=== PATIENT | female | born 1960 | race Caucasian/White ===

== ENCOUNTER 2020-07-28 17:34 | Emergency (ER) | payer BC ==
[~2020-07-28] VITALS: Ht 162.6 cm; Wt 77.0 kg
--- NOTE | 2020-07-28 19:15 | RAD ---
XR LT TIBIA + FIBULA, XR KNEE _3 VIEWS_LT Clinical Indication: Reason: INJURY / Spl. Instructions: / History: Comparison: None. Findings: Probable enchondroma of the distal femur is noted. There are tricompartmental marginal osteophytes. T here is mild tricompartmental joint space narrowing. There is patellar enthesophyte. No joint effusio n is identified. No acute fracture is seen. No acute fracture of the tibia or fibula is identified. There is subcutaneous edema of the calf. Ther e is no obvious abnormality of the ankle, incompletely imaged. IMPRESSION: No acute fracture. Electronically signed by: Anshul Bernstein MD (07/28/2020 7:12 PM) [facility]
[2020-07-28] MEDS ORDERED: IBUPROFEN 600 MG TABLET. PO ONE (19:30)
--- NOTE | 2020-07-28 19:30 | PHYS DOC ---
Past History Past Medical History: Diabetes, GERD, High Cholesterol, Hypertension, Other Additional Past Medical Histor: PERIPHERAL VASCULAR DISEASEM, AAA Additional Past Surgical Histo: AAA REPAIR, HERNIA REPAIR Alcohol Use: None Adult General Chief Complaint Chief Complaint: MECHANICAL FALL HPI HPI Patient is a 60-year-old female who presents with left knee pain. States she was in her kitchen, standing on a chair this morning, when the chair went out fr om under her and she hit her left knee on the ground. States she had immediate pain, 6 out of 10, dull and achy in nature and some swelling over the course of the day. States she is able to walk but it does cause some discomfort. Denies any other injuries. Review of Systems Review of Systems Review of systems otherwise unremarkable except noted in HPI Allergies Allergies Allergies Coded Allergies Type Severity Reaction Last Updated Verified Iodinated Contrast Media Allergy Unknown 07/28/20 Yes Penicillins Allergy Unknown 07/28/20 Yes acetaminophen Allergy Unknown 07/28/20 Yes hydrocodone Allergy Unknown 07/28/20 Yes morphine Allergy Unknown 07/28/20 Yes Physical Exam Physical Exam Constitutional: Well developed, well nourished, no acute distress, non-toxic appearance. [] Cardiovascular:Heart rate regular rhythm, no murmur [] Skin: Warm, dry, no erythema, no rash. [] Back: No tenderness, Extremities: Left knee with generalized tenderness around the joint and mild generalized swelling with faint contusion. Neurovascular exam intact. Flexion decreased secondary to pain. Extension normal. Neurologic: Alert and oriented X 3, normal motor function, normal sensory function, no focal deficits noted. [] Psychologic: Affect normal, judgement normal, mood normal. [] Current Patient Data Vital Signs Vital Signs Date Time Temp Pulse Resp B/P (MAP) Pulse Ox O2 Delivery O2 Flow Rate FiO2 07/28/20 17:44 98.4 79 18 174/71 (105) 95 Room Air EKG EKG [] Radiology/Procedures Radiology/Procedures [] Heart Score Risk Factors: Risk Factors: DM, Current or recent (<one month) smoker, HTN, HLP, family history of CAD, obesity. Risk Scores: Risk Factors: DM, Current or recent (<one month) smoker, HTN, HLP, family history of CAD, obesity. Course & Med Decision Making Course & Med Decision Making Patient is a 60-year-old female who presents with left knee pain Vital signs not concerning. Physical exam noted above. Offered ice, Tylenol and ibuprofen. Patient states she is allergic to Tylenol and does not like ice. Gave ibuprofen. Imaging noted above with no acute osseous abnormalities notable for possible enchondroma. Patient placed in a knee immobilizer. Advised to follow-up with primary care and orthopedic surgery as soon as possible to discuss her ED visit and set up further evaluation and probable MRI for soft tissue damage. Advised on pain control at home. Advised [place] to the ED with new or concerning symptoms. Patient grateful, verbalized understanding and agreed with plan of discharge. [] Dragon Disclaimer Dragon Disclaimer This electronic medical record was generated, in whole or in part, using a voice recognition dictation system. Departure Departure: Impression: Primary Impression: Knee pain, left Additional Impression: Enchondroma Disposition: 01 DC HOME SELF CARE/HOMELESS Condition: STABLE Referrals: JASON SILVA (PCP) Patient Instructions: Knee Pain Additional Instructions: Please read the attached information. Please call your primary care physician first thing in the morning to update on ED visit and set up a follow-up appointment as soon as possible. You can use ice and ibuprofen as needed at home for pain control. Please keep your knee immobilizer on at all times as this will help with pain control and stability. Please only ambulate when needed and always use your crutches and keep your knee immobilizer on. Please call [facility] at [phone] first thing tomorrow to discuss your ED visit and set up a follow-up visit to discuss need for MRI. Please come back to the ED with new or concerning symptoms. Problem Qualifiers FANTA NG MD Jul 28, 2020 19:30
[2020-07-28 20:54] VITALS: BP 164/68
== END 2020-07-28 20:20 | disposition home or self-care (01) ==
LOC: ER 17:34
DX: S80.02XA Contusion of left knee, initial encounter (principal); D16.22 Benign neoplasm of long bones of left lower limb; E11.9 Type 2 diabetes mellitus without complications; K21.9 Gastro-esophageal reflux disease without esophagitis; E78.00 Pure hypercholesterolemia, unspecified; I10 Essential (primary) hypertension; Z88.0 Allergy status to penicillin; Z88.5 Allergy status to narcotic agent; Z91.041 Radiographic dye allergy status; W22.8XXA Striking against or struck by other objects, initial encounter; Y93.89 Activity, other specified; Y92.090 Kitchen in other non-institutional residence as the place of occurrence of the external cause; Y99.8 Other external cause status
CPT/HCPCS: 29505; 73562; 73590; 99284

== ENCOUNTER → 2020-07-30 | Outpatient (CLI) | payer BC ==
[2020-07-28 20:54] VITALS: BP 164/68
--- NOTE | 2020-07-30 18:06 | RAD ---
EXAM: Left knee CT without IV contrast INDICATION: Reason: Acute Lt knee pain post fall, bruising / Spl. Instructions: / History: TECHNIQUE: Helical CT of the left knee was performed without IV contrast and reviewed in bone and sof t tissue algorithm reconstructions and multiplanar reformats. All CT scans performed at this facility utilize dose optimization techniques as appropriate to the exam, including the following: Automated exposure control and adjustment of the mA and/or KV according to patient size (this includes techniqu es or standardized protocols for targeted exams where dose is indication/reason for exam). COMPARISON: Left knee x-rays of 07/28/2020 FINDINGS: Mild valgus deformity to the left knee is seen, less conspicuous than in the contralateral knee on th e [place] view. The bones are demineralized and irregular sclerotic lesion in the distal femoral metaphysis with cent ral lucency is redemonstrated, consistent with a large, benign bone island. No acute fracture is evident. No aggressive appearing bony lesions are seen. There are tricompartment degenerative changes with osteophytic spurring present on both the medial la teral femoral condyles as well as in the lateral and medial patellar facets. The soft tissues show no evidence of a joint effusion. A prominent posterior varicose vein is seen be tween the popliteal vein and the distal greater saphenous vein. No radiopaque foreign body or abnorma l soft tissue gas. No soft tissue hematoma. IMPRESSION: 1 No acute fracture or traumatic malalignment. 2. Mild tricompartmental degenerative changes in the left knee an incidental large bone island in the distal femoral metaphysis. Electronically signed by: Shai Mosquera MD (07/30/2020 6:04 PM) [id number]
== END ==
LOC: CT 08:54
PROVIDERS: ATTEND Family Medicine
DX: M17.12 Unilateral primary osteoarthritis, left knee (principal)
CPT/HCPCS: 73700

== ENCOUNTER → 2021-04-01 | Outpatient (CLI) | payer BC | LOC: LAB 12:10 | PROVIDERS: ATTEND Physician Assistant | DX: L40.9 Psoriasis, unspecified (principal); Z79.899 Other long term (current) drug therapy | CPT/HCPCS: 86481 ==

== ENCOUNTER → 2021-11-02 | Outpatient (CLI) | payer BC ==
--- NOTE | 2021-11-02 10:58 | RAD ---
INDICATION: Reason: RT LEG PAIN / Spl. Instructions: / History: COMPARISON: Not available TECHNIQUE: Grayscale, color and doppler ultrasound images were obtained of the right lower extremity venous vasculature. RIGHT: No thrombus identified in the common femoral vein, femoral vein, popliteal vein or visualized calf ve ins. IMPRESSION: * No thrombus identified in deep venous system of right lower extremity. Electronically signed by: Dimitri Kinsey MD (11/02/2021 10:56 AM) [id number]
--- NOTE | 2021-11-02 15:41 | RAD ---
XR RT TIBIA+FIBULA History: Reason: / Spl. Instructions: / History: Pain. Technique: 2 views right tibia and fibula Comparison: None. Findings: No dislocation. No acute fracture. Mild right knee degenerative changes. Soft tissue swelling anterio r to the mid tibia on lateral view. Varicose veins noted. Impression: 1. No acute osseous abnormality. 2. Soft tissue swelling anterior to the mid tibia. 3. Mild right knee DJD. Electronically signed by: Nitish Ford DO (11/02/2021 3:38 PM) [id number]
== END ==
LOC: US 10:18
PROVIDERS: ATTEND Family Medicine
DX: M17.11 Unilateral primary osteoarthritis, right knee (principal); M79.89 Other specified soft tissue disorders; I83.91 Asymptomatic varicose veins of right lower extremity
CPT/HCPCS: 73590; 93971